=== PATIENT | male | born 1995 | race Hispanic/Latino ===

== ENCOUNTER 2018-06-29 23:12 | Emergency (ER) | payer SELFPAY ==
--- NOTE | 2018-06-29 23:38 | RAD ---
CHEST ONE VIEW: 06/29/18 HISTORY: Chest injury. Stepped on by bull. FINDINGS: No comparison. The cardiac silhouette and magnified by projection. Pulmonary vasculature upper limits of normal. Med iastinum is midline. No lobar consolidation or evidence of pneumothorax. Mildly displaced fracture involves the lateral aspect of the left 9th rib. IMPRESSION: Left 9th rib fracture. No other significant abnormalities are apparent on this exam. POS: [facility]
[2018-06-29 23:43] LABS: #Eosinphils 0.1 thou/uL (0.0-0.7); #Lymphocytes 1.8 thou/uL (1.20-3.40); #Monocytes 0.4 thou/uL (0.11-0.59); #Neutrophils 7.4 thou/uL (1.40-6.50); %Basophils 0.5 % (0.0-1.0); %Eosinophils 0.6 % (0.0-10.0); %Lymphocytes 18.4 % (21.0-51.0); %Monocytes 4.1 % (0.0-10.0); %Neutrophils 76.4 % (42.0-75.0); Mean Corpuscular HGB CONC 35.2 g/dL (32.0-36.0); Mean Corpuscular Hemoglobin 31.2 pg (27.0-31.0); Mean Corpuscular Volume 88.7 fL (78.0-98.0); Mean Platelet Volume 7.6 fL (7.4-10.4); Platelet Count 272 thou/uL (130-400); RBC Distribution Width 11.7 % (11.5-14.5); Red Blood Cell (RBC) Count 4.82 mill/uL (4.70-6.10); White Blood Cell (WBC) Count 9.7 thou/uL (4.8-10.8)
[2018-06-29] MEDS ORDERED: Adacel (T-DAP) 0.5 ML VIAL ONE (23:46)
[2018-06-29] MEDS ORDERED: Ketorolac Tromethamine 30 MG/ML VIAL ONE (23:46)
--- NOTE | 2018-06-29 23:52 | CT ---
CT HEAD NONCONTRAST: 06/29/18 HISTORY: Head injury. FINDINGS: No comparison. There is no evidence of acute intracranial hemorrhage or infarct. Ventricles appear no rmal in size, shape and position. There is no mass effect or shift of midline structures. IMPRESSION: No acute intracranial abnormalities are demonstrated. POS: [facility]
--- NOTE | 2018-06-29 23:54 | CT ---
CT CERVICAL SPINE NONCONTRAST: 06/29/18 HISTORY: Neck injury. FINDINGS: Vertebral body heights and alignment are maintained. No acute fracture or dislocation. Cervicothoraci c junction is intact. IMPRESSION: No acute osseous abnormalities of the cervical spine are demonstrated. POS: [facility]
--- NOTE | 2018-06-30 | CT ---
CT ABDOMEN AND PELVIS WITH IV CONTRAST CT LUMBAR SPINE NONCONTRAST 06/29/18 HISTORY: Abdomen injury and back injury. Stepped on by bull. FINDINGS: Mildly displaced fractures involve the lateral aspect of the left 9th and 10th ribs. No pneumothorax is evident. There is subtle stranding within the fat surrounding the left adrenal gland and within th e left lateral posterior peritoneal fat. No free air or free fluid. Spleen is intact. Vertebral body heights and alignment of the lumbar spine are maintained. IMPRESSION: Left lateral lower rib fractures with injury of the left abdominal peritoneal fat and the left adrena l gland without a significant hematoma. Findings regarding the CT head and cervical spine and the CT abdomen, pelvis and lumbar spine were ca lled to Dr. Crow in the Emergency Department at 2349 hours. Code CR POS: [facility]
[2018-06-30 00:01] LABS: ALT (SGPT) 40 U/L (8-55); AST (SGOT) 36 U/L (5-34); Albumin 4.8 g/dL (3.5-5.0); Alcohol 158 mg/dL (Less than 10); Alkaline Phosphatase 112 U/L (40-150); Anion Gap 15 mmol/L (10-20); BUN (Urea Nitrogen) 12 mg/dL (8.9-20.6); Bilirubin, Total 0.3 mg/dL (0.2-1.2); Calc. Creatinine Clearance 0 mL/min (70-130); Calcium 9.5 mg/dL (7.8-10.44); Carbon Dioxide 21 mmol/L (22-29); Chloride 107 mmol/L (98-107); Estimated GFR-MDRD Greater than 90; Globulin 3.4 g/dL (2.4-3.5); Glucose 107 mg/dL (70-105); Lipase 17 U/L (8-78); Potassium 3.7 mmol/L (3.5-5.1); Protein, Total 8.2 g/dL (6.0-8.3); Sodium 139 mmol/L (136-145)
== END 2018-06-30 01:00 | disposition home or self-care (01) ==
LOC: ERS 23:12
DX: S22.42XA Multiple fractures of ribs, left side, initial encounter for closed fracture (principal); F17.200 Nicotine dependence, unspecified, uncomplicated; W55.29XA Other contact with cow, initial encounter
CPT/HCPCS: 70450; 71045; 72125; 74177; 80053; 80307; 83690; 85025; 86850; 86900; 86901; 90471; 90715; 96361; 96374; 96375; G0390; J1885; J2270